=== PATIENT | female | born 1980 | race Caucasian/White ===

== ENCOUNTER 2017-01-26 17:09 | Emergency (ER) | payer OTHER ==
[~2017-01-26] VITALS: Ht 152.4 cm; Wt 100.1 kg
[~2017-01-26 17:09] MED LIST: FLOVENT; MOTRIN600 MG PO; MOTRIN800 MG PO; NOHOMEMEDS; NORCO 7.5/321 TABLET PO; PRILOSEC20 MG PO; PROAIR HFA8.5 GM IH; ULTRAM50 MG PO; VENTOLIN HFA18 GM IH; ZITHROMAX250 MG PO; ZOFRAN ODT4 MG PO; [UNRECOGNIZED DRUG - REMARK]
[2017-01-26 18:35] LABS: BASOPHIL COUNT 0.1 K/uL (0-0.1); EOSINOPHIL (%) 2.3 % (0-5); EOSINOPHIL COUNT 0.3 K/uL (0-0.3); HEMATOCRIT 42.3 % (36.0-46.0); IMMATURE GRANULOCYTE (%) 0.6 % (0.0-0.7); IMMATURE GRANULOCYTE COUNT 0.1 K/uL; INSTRUMENT ABS NEUTROPHIL CT 6.7 K/uL; LYMPHOCYTE COUNT 3.3 K/uL (1.0-2.8); MCHC 34.8 G/DL (30.0-36.0); MCV 92.2 FL (83-99); MEAN PLAT.VOLUME 9.9 uM^3 (9.5-12.4); MONOCYTE (%) 4.5 % (3-12); MONOCYTE COUNT 0.5 K/uL (0-0.8); NEUTROPHIL (%) 61.7 % (45-76); NEUTROPHIL COUNT 6.7 K/uL (1.8-6.4); PLATELET COUNT 254 K/uL (156-360); RBC DIS.WIDTH-CV 12.3 % (11.8-14.6); RBC DIS.WIDTH-SD 41.3 % (39-53); RED BLOOD COUNT 4.59 M/uL (3.80-5.20); WHITE BLOOD COUNT 10.8 K/uL (4.1-10.2)
[2017-01-26 18:44] LABS: CHLORIDE 109 mEq/L (99-109); POTASSIUM 3.2 mEq/L (3.7-5.4); SODIUM 140 mEq/L (136-147)
[2017-01-26 18:46] LABS: GLUCOSE 149 mg/dL (70-99)
[2017-01-26 18:47] LABS: ANION GAP 11 MEQ/L (2-14)
[2017-01-26 18:49] LABS: SERUM ETHYL ALCOHOL < 10 mg/dL
[2017-01-26 18:50] LABS: GFR ESTIMATE (CALCULATED) > 59 mL/min/
[2017-01-26 18:51] LABS: UREA NITROGEN (BUN) 7 mg/dL (9-23)
[2017-01-26 18:53] LABS: ADD MIUA? NO; BILIRUBIN NEGATIVE; BLOOD NEGATIVE; COLOR STRAW ((YELLOW)); GLUCOSE (STRIP) NEGATIVE; KETONES NEGATIVE; LEUKOCYTES NEGATIVE; NITRITE NEGATIVE; PROTEIN (STRIP) NEGATIVE; SPECIFIC GRAVITY 1.006 (1.000-1.030); UROBILINOGEN 0.2 MG/DL (0.2-1.0)
[2017-01-26 18:58] LABS: QUANTITATIVE HCG < 4.0 MIU/ML
[2017-01-26 19:03] LABS: AMPHETAMINE NEGATIVE (500 ng/mL); BARBITURATES NEGATIVE (200 ng/mL); BENZODIAZEPINES NEGATIVE (150 ng/mL); COCAINE NEGATIVE (150 ng/mL); INTERNAL CONTROLS VALID? YES; METHADONE NEGATIVE (200 ng/mL); METHAMPHETAMINE NEGATIVE (500 ng/mL); OPIATES (MORPHINE) NEGATIVE (100 ng/mL); OXYCODONE NEGATIVE (100 ng/mL); PHENCYCLIDINE NEGATIVE (25 ng/mL); PROPOXYPHENE NEGATIVE (300 ng/mL); THC CANNABINOIDS NEGATIVE (50 ng/mL); TRICYCLIC ANTIDEPRESSANTS NEGATIVE (300 ng/mL)
[2017-01-26] MEDS ORDERED: BUSPAR7.5 MG PO (21:18)
[2017-01-26] MEDS ORDERED: WELLBUTRIN100 MG PO (21:18)
[2017-01-26 21:43] VITALS: BP 125/97
== END 2017-01-26 21:46 | disposition home or self-care (01) ==
LOC: EME 17:09
PROVIDERS: Emergency Medicine
DX: F41.0 Panic disorder [episodic paroxysmal anxiety] (principal); F17.200 Nicotine dependence, unspecified, uncomplicated
CPT/HCPCS: 80048; 81003; 84702; 85025; 90839; 99281; 99284; G0480

== ENCOUNTER 2017-09-05 21:55 | Emergency (ER) | payer OTHER ==
[~2017-09-05] VITALS: Ht 152.4 cm; Wt 102.2 kg
[~2017-09-05 21:55] MED LIST changes: +BUSPAR7.5 MG PO; +WELLBUTRIN100 MG PO
[2017-09-06] MEDS ORDERED: LAMISIL250 MG PO (00:26)
[2017-09-06] MEDS ORDERED: NAPROSYN500 MG PO (00:26)
[2017-09-06 00:57] VITALS: BP 114/95
== END 2017-09-06 00:57 | disposition home or self-care (01) ==
LOC: EME 21:55
DX: B35.1 Tinea unguium (principal); J45.909 Unspecified asthma, uncomplicated; F17.200 Nicotine dependence, unspecified, uncomplicated; Z88.5 Allergy status to narcotic agent; Z88.8 Allergy status to other drugs, medicaments and biological substances
CPT/HCPCS: 99281; 99283

== ENCOUNTER 2017-11-05 21:03 | Emergency (ER) | payer OTHER ==
[~2017-11-05] VITALS: Ht 152.4 cm; Wt 105.1 kg
[~2017-11-05 21:03] MED LIST changes: +LAMISIL250 MG PO; +NAPROSYN500 MG PO
[2017-11-05] MEDS ORDERED: TESSALON PERLE100 MG PO (23:10)
[2017-11-05] MEDS ORDERED: VENTOLIN HFA18 GM IH (23:10)
[2017-11-05] MEDS ORDERED: PREDNISONE10 M1 PO (23:10)
[2017-11-05 23:21] VITALS: BP 149/92
== END 2017-11-05 23:21 | disposition home or self-care (01) ==
LOC: RME 21:03 → EME 21:03 → RME 23:21
DX: J06.9 Acute upper respiratory infection, unspecified (principal); F17.210 Nicotine dependence, cigarettes, uncomplicated; Z71.6 Tobacco abuse counseling; J45.909 Unspecified asthma, uncomplicated; G43.909 Migraine, unspecified, not intractable, without status migrainosus; F32.9 Major depressive disorder, single episode, unspecified; Z90.710 Acquired absence of both cervix and uterus; Z90.49 Acquired absence of other specified parts of digestive tract; Z88.5 Allergy status to narcotic agent; Z88.8 Allergy status to other drugs, medicaments and biological substances
CPT/HCPCS: 71046; 87651 90; 94640; 99281; 99284

== ENCOUNTER 2018-01-04 19:19 | Emergency (ER) | payer OTHER ==
[~2018-01-04] VITALS: Ht 154.9 cm; Wt 102.0 kg
[~2018-01-04 19:19] MED LIST changes: +PREDNISONE10 M1 PO; +TESSALON PERLE100 MG PO
[2018-01-04] MEDS ORDERED: MOTRIN600 MG PO (21:41)
[2018-01-04 22:02] VITALS: BP 128/74
== END 2018-01-04 22:03 | disposition home or self-care (01) ==
LOC: EME 19:19 → EXP 19:19
DX: M72.2 Plantar fascial fibromatosis (principal); J45.909 Unspecified asthma, uncomplicated; F32.9 Major depressive disorder, single episode, unspecified; F17.200 Nicotine dependence, unspecified, uncomplicated; Z90.710 Acquired absence of both cervix and uterus; Z90.49 Acquired absence of other specified parts of digestive tract; Z88.5 Allergy status to narcotic agent; Z88.8 Allergy status to other drugs, medicaments and biological substances
CPT/HCPCS: 73630; 99281; 99283

== ENCOUNTER 2018-01-25 07:41 | Emergency (ER) | payer OTHER ==
[~2018-01-25] VITALS: Ht 154.9 cm; Wt 109.0 kg
[2018-01-25 08:16] LABS: HEMATOCRIT 35.8 % (36.0-46.0); MCH 33.1 PG (29.0-34.0); MCHC 36.3 G/DL (30.0-36.0); MCV 91.1 FL (83-99); PLATELET COUNT 271 K/uL (156-360); RBC DIS.WIDTH-CV 12.2 % (11.8-14.6); RBC DIS.WIDTH-SD 40.6 % (39-53); RED BLOOD COUNT 3.93 M/uL (3.80-5.20); WHITE BLOOD COUNT 8.7 K/uL (4.1-10.2)
[2018-01-25 08:26] LABS: ALBUMIN 3.9 g/dL (3.2-4.8)
[2018-01-25 08:27] LABS: CHLORIDE 105 mEq/L (99-109); POTASSIUM 3.7 mEq/L (3.7-5.4); SODIUM 137 mEq/L (136-147)
[2018-01-25 08:29] LABS: GLUCOSE 137 mg/dL (70-99); TOTAL PROTEIN 6.5 g/dL (6.4-8.3)
[2018-01-25 08:31] LABS: TOTAL BILIRUBIN 0.5 mg/dL (0.0-1.0)
[2018-01-25 08:32] LABS: ALKALINE PHOSPHATASE 80 IU/L (3-129)
[2018-01-25 08:33] LABS: CREATININE 0.8 mg/dL (0.6-1.3); GFR ESTIMATE (CALCULATED) > 59 mL/min/
[2018-01-25 08:34] LABS: AST (GOT) 32 IU/L (2-34); UREA NITROGEN (BUN) 10 mg/dL (9-23)
[2018-01-25 08:36] LABS: ALT (GPT) 34 IU/L (3-49); LIPASE 40 U/L (1.0-51.0)
[2018-01-25 08:43] LABS: APPEARANCE CLEAR ((CLEAR)); BILIRUBIN NEGATIVE; BLOOD NEGATIVE; COLOR YELLOW ((YELLOW)); GLUCOSE (STRIP) NEGATIVE; KETONES NEGATIVE; LEUKOCYTES NEGATIVE; NITRITE NEGATIVE; PROTEIN (STRIP) NEGATIVE; SPECIFIC GRAVITY 1.029 (1.000-1.030); UROBILINOGEN 0.2 MG/DL (0.2-1.0)
[2018-01-25 08:44] LABS: QUANTITATIVE HCG < 4.0 MIU/ML
[2018-01-25] MEDS ORDERED: ZOFRAN ODT4 MG PO (11:35)
[2018-01-25] MEDS ORDERED: BENTYL20 MG PO (11:35)
[2018-01-25 11:42] VITALS: BP 134/85
== END 2018-01-25 11:49 | disposition home or self-care (01) ==
LOC: EME 07:41
PROVIDERS: Nurse Practitioner Family
DX: R10.11 Right upper quadrant pain (principal); R11.0 Nausea; K76.0 Fatty (change of) liver, not elsewhere classified; R16.0 Hepatomegaly, not elsewhere classified; J45.909 Unspecified asthma, uncomplicated; F32.9 Major depressive disorder, single episode, unspecified; F41.9 Anxiety disorder, unspecified; Z87.891 Personal history of nicotine dependence; Z90.49 Acquired absence of other specified parts of digestive tract; Z90.710 Acquired absence of both cervix and uterus; Z88.5 Allergy status to narcotic agent; Z88.8 Allergy status to other drugs, medicaments and biological substances
CPT/HCPCS: 76705; 80053; 81003; 83690; 84702; 85027; 93005; 99281; 99285